=== PATIENT | male | born 1945 | race Caucasian/White ===

== ENCOUNTER 2020-04-30 12:57 | Outpatient (RCR) | payer MEDICARE, SELFPAY ==
--- NOTE | 2020-04-30 | XR_ITS ---
EXAMINATION: XR TOES, RIGHT CLINICAL INFORMATION: Plantar wound 4th toe, evaluate for osteomyelitis COMPARISON: None TECHNIQUE: 3 views of the right toes were obtained. FINDINGS: Soft tissue defect at the distal aspect of the 4th toe with cortical erosion and deformity presumably representing osteomyelitis which appears active. There is a surgical deformity of the 3rd proximal phalanx. Possible chronic erosion/flattening of the 2nd distal phalanx. 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 IMPRESSION: There is evidence of osteomyelitis involving the tuft of the 4th distal phalanx.
== END 2020-11-04 13:28 | disposition home or self-care (01) ==
LOC: HO.WCC 12:57
PROVIDERS: PCP Internal Medicine; Visit Provider Physician Assistant
DX: Z09 Encounter for follow-up examination after completed treatment for conditions other than malignant neoplasm (principal); E11.51 Type 2 diabetes mellitus with diabetic peripheral angiopathy without gangrene; Z86.31 Personal history of diabetic foot ulcer
CPT/HCPCS: 10060; 11042; 15271; 15275; 73660; 97597; 99212; 99213; Q4186; Q4187

== ENCOUNTER → 2020-05-27 13:06 | Outpatient (BNVA) | payer MEDICARE, SELFPAY | PROVIDERS: PCP Internal Medicine; Visit Provider Internal Medicine | DX: M86.671 Other chronic osteomyelitis, right ankle and foot (principal); Z88.4 Allergy status to anesthetic agent; Z88.8 Allergy status to other drugs, medicaments and biological substances | CPT/HCPCS: 99202 ==

== ENCOUNTER → 2020-06-03 15:28 | Outpatient (BNVA) | payer MEDICARE, SELFPAY | PROVIDERS: PCP Internal Medicine; Referring Provider Internal Medicine; Visit Provider Surgery | DX: M86.671 Other chronic osteomyelitis, right ankle and foot (principal); I73.9 Peripheral vascular disease, unspecified | CPT/HCPCS: 99212 ==

== ENCOUNTER → 2020-07-02 11:41 | Outpatient (BNVA) | payer MEDICARE, SELFPAY | PROVIDERS: PCP Internal Medicine; Referring Provider Internal Medicine; Visit Provider Surgery | DX: M86.9 Osteomyelitis, unspecified (principal) | CPT/HCPCS: 99212 ==

== ENCOUNTER 2020-07-21 07:22 | Day surgery (SDC) | payer MEDICARE, SELFPAY ==
[2020-07-10 21:05] VITALS: BMI 29.2
--- NOTE | 2020-07-16 10:39 | HO.ANESPROP2 ---
HPI - Anesthesia Eval Consult details Narrative: 74yo M for Toe Amputation, 4th Metatarsal Pending: Cardiac Clearance 07/16/20; Pacer Interrogation PENDING SALE TO [facility] Past Medical History Medical History Anal lesion Anxiety Arthritis Back pain COPD (chronic obstructive pulmonary disease) Depression Diabetes History of atrial fibrillation History of prostate cancer HTN (hypertension) Kidney disease Lung cancer Osteomyelitis Pacemaker Peripheral neuropathy Peripheral vascular disease PONV (postoperative nausea and vomiting) Presence of urostomy Sleep apnea with use of continuous positive airway pressure (CPAP) Surgical History Surgical History Aortic valve replaced History of cardiac catheterization (~04/04/15) History of colonoscopy History of cystoscopy History of endoscopy History of inguinal hernia repair (~1998) History of urostomy (~08/30/11) History of varicose vein stripping History of vasectomy (~1997) Social History Social History Smoking Status: Former smoker Advance Directives Date on File: 08/26/14 Meds Allergies Allergy/AdvReac Type Severity Reaction Status Date / Time doxycycline Allergy Mild unkown Verified 07/21/20 08:12 ibuprofen Allergy Itching Verified 07/21/20 08:12 Home Medications Medication Instructions Recorded Confirmed Type albuterol sulfate 90 mcg/actuation 1 - 2 puff INHALATION Q4-6H PRN 05/27/20 07/10/20 History aerosol inhaler amlodipine 10 mg tablet 10 mg PO DAILY 05/27/20 07/10/20 History carvedilol 25 mg tablet 25 mg PO BID 05/27/20 07/10/20 History cetirizine 10 mg tablet 10 mg PO DAILY 05/27/20 07/10/20 History collagenase clostridium histo. 250 500 unit TOPICAL DAILY 05/27/20 07/10/20 History unit/gram topical ointment fenofibrate micronized 134 mg 134 mg PO DAILY 05/27/20 07/10/20 History capsule ferrous sulfate 325 mg (65 mg 325 mg PO QAM 05/27/20 07/10/20 History iron) tablet furosemide 80 mg tablet 80 mg PO BID 05/27/20 07/10/20 History gabapentin 300 mg capsule 300 mg PO TID 05/27/20 07/10/20 History pantoprazole 40 mg tablet,delayed 40 mg PO DAILY 05/27/20 07/10/20 History release pen needle, diabetic 31 gauge x #1200 ea 05/27/20 07/10/20 History 5/16 silver sulfadiazine 1 % topical 1 applic TOPICAL BID 05/27/20 07/10/20 History cream tramadol 50 mg tablet 50 mg PO DAILY PRN 05/27/20 07/10/20 History triamcinolone acetonide 0.1 % 1 appl TOPICAL DAILY 05/27/20 07/10/20 History topical ointment aspirin 81 mg tablet,delayed 81 mg PO DAILY 06/03/20 07/10/20 History release betamethasone valerate 0.1 % 1 appl TOPICAL DAILY 06/03/20 07/10/20 History topical ointment Trelegy Ellipta 1 puff INHALATION DAILY 07/11/20 07/11/20 History Tresiba FlexTouch U-100 36 unit SUBCUT QPM 07/11/20 07/11/20 History insulin aspart U-100 [Novolog SUBCUT QIDACHS 07/11/20 History Flexpen U-100 Insulin] ascorbic acid (vitamin C) [Vitamin 500 mg PO BID 07/21/20 07/21/20 History C] magnesium oxide 800 mg PO DAILY 07/21/20 07/21/[address] BEDTIME 07/21/20 07/21/20 History modafinil 2 tab PO BID 07/21/20 07/21/20 History multivitamin 1 tab PO DAILY 07/21/20 07/21/20 History vitamin A00-knlhskafx factor 07/21/20 07/21/20 History Exam Exam Date and Time: July 16, 2020 1039 Height,Weight and Vital Signs: Height 5 ft 11 in Weight 95.254 kg Narrative Narrative: EKG 11/2019: V-paced at 70 Assessment and Plan Assessment Anesthesia Assessment: Chart Reviewed
[2020-07-21 07:57] VITALS: BP 142/75; PULSE 70; RESP 18; TEMP 36.2; O2SAT 98
[2020-07-21 07:59] LABS: Hematocrit 36.7 % (42-52); Hemoglobin 11.4 g/dl (14.0-18.0); Mean Corpuscular HGB Conc 31.1 g/dl (31.0-36.0); Mean Corpuscular Hemoglobin 30.4 pg (27.0-33.0); Mean Corpuscular Volume 97.9 fL (80-98); Mean Platelet Volume 11.5 fL (9.4-12.4); Platelet Count 188 X10*3/uL (160-400); Red Blood Count 3.75 X10*6/uL (4.60-5.80); Red Cell Distribution Width 14.7 % (11.0-16.0); White Blood Count 8.1 X10*3/uL (4.8-10.8)
[2020-07-21 08:03] LABS: INTERNATIONAL NORM RATIO 1.1 (0.9-1.1); Prothrombin Time 13.6 SEC (10.8-13.0)
[2020-07-21 08:38] LABS: Alanine Aminotransferase 20 U/L (0-40); Albumin Level 4.4 g/dL (3.5-5.0); Alkaline Phosphatase 99 U/L (39-117); Anion Gap 13 (12-20); Aspartate Amino Transferase 27 U/L (5-37); Bilirubin Total 0.5 mg/dL (0.0-1.0); Blood Urea Nitrogen 62 mg/dL (9-16); Calcium 10.3 mg/dL (8.4-10.2); Carbon Dioxide 30 mmol/L (22-29); Chloride 104 mmol/L (96-108); Creatinine Clr Calc Pharmacy 43.1; Estimated Glomerular Filt Rate 38; Glucose Fasting 177 mg/dL (60-99); Potassium 4.8 mmol/l (3.3-5.1); Sodium 142 mmol/L (135-145); Total Protein 7.6 g/dL (6.5-8.0)
[2020-07-21] MEDS: ceFAZolin Sodium/Dextrose,Iso 2 GM/50 ML PIGGYBACK IV (08:39)
[2020-07-21] MEDS: Lactated Ringers 1,000 ML 100 ML IVCONT (08:39)
--- NOTE | 2020-07-21 08:57 | MHC.SHP ---
Pre-Procedural Eval Section A The patient is an INPATIENT: No Changes since office visit: Yes Patient answered all questions; No Cold of Flu in the past 2 weeks, No New Medical Problems and No Changes in Medication The History & Physical has been completed within 30 days and I have reviewed it.: Yes Section B Chief Complaint: Osteomyelitis Allergies: Allergies Allergy/AdvReac Type Severity Reaction Status Date / Time doxycycline Allergy Mild unkown Verified 07/21/20 08:12 ibuprofen Allergy Itching Verified 07/21/20 08:12 Plan Diagnosis/Plan: Unchanged I have reviewed the history and physical and performed a pertinent physical examination on my patient. No changes have occurred unless specified.
--- NOTE | 2020-07-21 08:59 | PC.NURSE ---
ANESTHESIA REVIEWED ALL MORNING LABS. FBS 177.
--- NOTE | 2020-07-21 09:39 | PM.OP ---
Brief Operative Note Date of Service: 07/21/20 Pre-op diagnosis: Osteomyelitis right 4th toe Post-op diagnosis: same Procedure: Amputation of right 4th toe Implants: None Surgeon: Allan Fuller MD Anesthesia: MAC and regional [place] Cutter: Coni Castillo Estimated blood loss (mL): 5 Pathology: other (Right 4th toe) Condition: stable Disposition: PACU
[2020-07-21 09:40] VITALS: BP 123/54; PULSE 70; RESP 15; TEMP 36.6; O2SAT 99
--- NOTE | 2020-07-21 09:40 | P.OP_ITS ---
Operative Note Operative Note Date of Service: 07/21/20 Narrative: Preoperative diagnosis: Osteomyelitis right 4th toe Postoperative diagnosis: Same Procedure: Amputation of right 4th toe Surgeon: Allan Fuller MD [employer] Assistants: CAMERON Barr Anesthesia: Mac plus local block Indications for procedure: 74-year-old male patient presenting with a long history of an ulcer of right 4th toe being treated at the [facility] found to have osteomyelitis involving the distal phalanx presenting now for amputation. Operative findings: Patient found to have osteomyelitis involving the tip of the 4th toe. Distal metatarsal found to be normal in appearance without e vidence of osteomyelitis Specimen: Right 4th toe Complications: None Estimated blood loss: 5 mL Procedure details: Patient was brought to the OR and placed in a supine position. After administering light sedation patient's right foot was prepped with Betadine and draped in a sterile fashion. A surgical time-out was called the consent confirmed. Patient received preoperative antibiotics. Local anesthesia consisting of 1% lidocaine mixed with 0.5% Sensorcaine was infiltrated in a digital block for the 4th toe. A incision was made in elliptical fashion around the base of the right 4th toe extending up over the 4th metatarsal. Hemostasis was achieved using electrocautery. Combination of electrocautery and sharp dissection was then used to dissect down to the 4th metatarsal distally. Bone cutter was then used to divide the toe just proximal to the MP joint. [place]geur was used to dissect further proximally on the distal metatarsal 4th toe. Hemostasis was then assured using electrocautery. Wounds were irrigated and suctioned dry. Additional local was infiltrated in the subcutaneous tissue. Skin was then closed using interrupted 3-0 nylon sutures. Sterile dressings were then applied. The patient tolerated the procedure well. Sponge, instrument, needle counts reported as correct. The patient was transferred to PACU in stable condition.
[2020-07-21 09:55] VITALS: BP 122/66; PULSE 70; RESP 17; RESP 18; TEMP 36.7; O2SAT 98
--- NOTE | 2020-07-21 11:03 | HO.POSTANES ---
Post Anesthesia Evaluation Post Anesthesia Evaluation Vital Signs: Vital Signs Temp Pulse Resp BP Pulse Ox 07/21/20 09:55 98.0 F 70 18 122/66 98 07/21/20 09:40 97.8 F 70 15 123/54 L 99 07/21/20 07:57 97.1 F 70 18 142/75 H 98 Anesthesia: Monitored Mental Status: Awake Pain Control: Satisfactory Nausea/Vomiting: None Hydration: Adequate Anesthesia-Related Issues: No Anes. Related Issues
== END 2020-07-21 10:37 | disposition home or self-care (01) ==
PROVIDERS: Nurse Practitioner; PCP Internal Medicine; Visit Provider Surgery
PROC: (CPT 28825; principal; 2020-07-21 09:00)
DX: M86.9 Osteomyelitis, unspecified (principal); E11.9 Type 2 diabetes mellitus without complications; J44.9 Chronic obstructive pulmonary disease, unspecified; I10 Essential (primary) hypertension; Z79.4 Long term (current) use of insulin; Z99.89 Dependence on other enabling machines and devices; Z79.82 Long term (current) use of aspirin; Z79.51 Long term (current) use of inhaled steroids; Z87.891 Personal history of nicotine dependence; Z88.1 Allergy status to other antibiotic agents; Z88.8 Allergy status to other drugs, medicaments and biological substances
CPT/HCPCS: 28825; 36415; 80053; 85027; 85610; 88305; 88311; J0690; J3010

== ENCOUNTER → 2020-07-29 14:44 | Outpatient (BNVA) | payer MEDICARE, SELFPAY | PROVIDERS: PCP Internal Medicine; Visit Provider Surgery | DX: M86.9 Osteomyelitis, unspecified (principal) | CPT/HCPCS: 99212 ==

== ENCOUNTER → 2020-08-12 13:33 | Outpatient (BNVA) | payer MEDICARE, SELFPAY | PROVIDERS: PCP Internal Medicine; Visit Provider Surgery | DX: M86.9 Osteomyelitis, unspecified (principal) | CPT/HCPCS: 99212 ==

== ENCOUNTER → 2020-10-07 15:36 | Outpatient (BNVA) | payer MEDICARE, SELFPAY | PROVIDERS: Visit Provider Urology | DX: Z13.89 Encounter for screening for other disorder (principal) | CPT/HCPCS: Q3014 ==

== ENCOUNTER → 2020-12-18 14:21 | Outpatient (BNVA) | payer MEDICARE, SELFPAY | PROVIDERS: Visit Provider Surgery | DX: M86.9 Osteomyelitis, unspecified (principal); Z89.421 Acquired absence of other right toe(s) | CPT/HCPCS: 99212 ==

== ENCOUNTER → 2021-02-05 11:19 | Outpatient (BNVA) | payer MEDICARE, SELFPAY | PROVIDERS: PCP Internal Medicine; Referring Provider Internal Medicine; Visit Provider Surgery | DX: L97.519 Non-pressure chronic ulcer of other part of right foot with unspecified severity (principal); Z89.421 Acquired absence of other right toe(s) | CPT/HCPCS: 99212 ==

== ENCOUNTER 2021-02-12 14:37 | Outpatient (REF) | payer MEDICARE, SELFPAY ==
[2021-02-12 16:09] LABS: Blood Urea Nitrogen 41 mg/dL (9-16); Estimated Glomerular Filt Rate 43
== END 2021-02-12 14:38 | disposition home or self-care (01) ==
LOC: HO.LAB 14:37
PROVIDERS: PCP Internal Medicine; Visit Provider Surgery
DX: M86.9 Osteomyelitis, unspecified (principal)
CPT/HCPCS: 36415; 82565; 84520

== ENCOUNTER 2021-02-17 13:58 | Outpatient (REF) | payer MEDICARE, SELFPAY ==
--- NOTE | ~2021-02-17 | CT_ITS ---
EXAMINATION: CT FOOT WITHOUT CONTRAST, RIGHT CLINICAL INFORMATION: Osteomyelitis. COMPARISON: Right toe radiographs dated 04/30/2020. TECHNIQUE: Contiguous axial CT images of the right foot were obtained without contrast. Multiplanar reformats were provided and reviewed. This CT examination was performed using dose optimization techniques as appropriate, variously including the following: *Automated exposure control *Adjustment of mA and/or kV according to patient size (this includes techniques or standardized protocols for targeted exams where dose is matched to indication/reason for exam; i.e. extremities or head) *Use of iterative reconstruction technique DLP: 133 mGy-cm FINDINGS: There has been interval resection of the 3rd and 4th toes with persistence of the proximal 3rd phalangeal base. Additionally, there is flattening of the 4th metatarsal head. No associated periosteal reaction or osseous erosion to suggest acute osteomyelitis. Skin thickening and soft tissue stranding/edema along the plantar aspect of the foot, most prominent adjacent to the 3rd and 4th metatarsals, consistent with cellulitis. No associated fluid collection/abscess formation. Severe joint space narrowing with bony remodeling, subchondral sclerosis, and large marginal osteophytes at the 1st metatarsophalangeal joint and hallux sesamoids. No acute fracture or dislocation. No concerning lytic or blastic osseous lesion. Os trigonum. No talar osteochondral lesion. CT/CT foot RT wo con IMPRESSION: 1. Resection of the 3rd and 4th toes with a small 3rd proximal phalangeal remnant. No associated osseous erosion or periosteal reaction to suggest acute osteomyelitis. 2. Skin thickening and soft tissue stranding/edema along the plantar aspect of the forefoot in the region of the 3rd and 4th metatarsals, consistent with cellulitis. No abscess formation. 3. Severe osteoarthritis at the 1st metatarsophalangeal joint and hallux sesamoids.
== END 2021-02-17 13:59 | disposition home or self-care (01) ==
LOC: HO.CT 13:58
PROVIDERS: PCP Internal Medicine; Visit Provider Surgery
DX: M86.9 Osteomyelitis, unspecified (principal)
CPT/HCPCS: 73700

== ENCOUNTER → 2021-04-10 12:52 | Outpatient (BNVA) | payer MEDICARE, SELFPAY | PROVIDERS: PCP Internal Medicine; Visit Provider Urology | DX: N39.0 Urinary tract infection, site not specified (principal); C61 Malignant neoplasm of prostate; Z93.6 Other artificial openings of urinary tract status | CPT/HCPCS: Q3014 ==